=== PATIENT | female | born 1930 | race Caucasian/White ===

== ENCOUNTER 2016-04-25 15:58 | Emergency (ER) | payer MEDICARE, BC ==
[~2016-04-25] VITALS: Ht 160 cm; Wt 63.5 kg
[~2016-04-25 15:58] MED LIST: AMLO5TAB2 PO; BIO-POW TOP; GLYC2SUP RECTAL; PERI8.6T PO
[2016-04-25 16:01] VITALS: BP 162/74; PULSE 97; RESP 16; TEMP 97.5; O2SAT 98
[2016-04-25] MEDS ORDERED: DULO20 PO (17:29)
[2016-04-25] MEDS ORDERED: SODIUM CHLORIDE 0.9% FLUSH 5 ML FLUSH IVF PRN (17:30)
[2016-04-25 17:31] VITALS: BP_SYST 14; BP_SYST 140; BP_DIAS 69; PULSE 76; RESP 18; O2SAT 99
[2016-04-25 17:52] VITALS: RESP 18; O2SAT 98
[2016-04-25 17:55] LABS: AUTOMATED NEUTROPHIL # 2.8 TH/MM3 (1.8-7.7); BASOPHIL % 0.8 % (0.0-2.0); EOSINOPHIL # 0.1 TH/MM3 (0-0.4); EOSINOPHIL % 2.2 % (0.0-4.0); HEMATOCRIT 39.3 % (35.0-46.0); HEMO FLAGS DIFF FINAL; LYMPH % 27.7 % (9.0-44.0); LYMPHOCYTE # 1.3 TH/MM3 (1.0-4.8); MEAN CELL VOLUME 87.5 FL (80.0-100.0); MEAN CORPUSCULAR HEMOGLOBIN 30.9 PG (27.0-34.0); MEAN CORPUSCULAR HGB CONC 35.3 % (32.0-36.0); MONO % 10.2 % (0.0-8.0); NEUT % 59.1 % (16.0-70.0); PLATELET COUNT 224 TH/MM3 (150-450); RED BLOOD COUNT 4.49 MIL/MM3 (4.00-5.30); RED CELL DISTRIBUTION WIDTH 14.2 % (11.6-17.2); WHITE BLOOD COUNT 4.7 TH/MM3 (4.0-11.0)
--- NOTE | 2016-04-25 18:14 | RADRPT ---
EXAM DATE/TIME: 04/25/2016 17:54 [facility] COMPARISON: No previous studies available for comparison. INDICATIONS : Palpitations. MEDICAL HISTORY : Hypertension. Gastroesophageal reflux disease. SURGICAL HISTORY : Appendectomy. Cholecystectomy ENCOUNTER: Initial ACUITY: 1 day PAIN SCORE: 0/10 LOCATION: Bilateral chest FINDINGS: A single view of the chest demonstrates the lungs to be symmetrically aerated without evidence of mas s, infiltrate or effusion. The cardiomediastinal contours are unremarkable. Osseous structures are intact. CONCLUSION: No evidence of acute cardiopulmonary disease. Mitul Fernandes MD on April 25, 2016 at 18:12 Board Certified Radiologist. This report was verified electronically.
[2016-04-25] MEDS ORDERED: SODIUM CHLORID 0.9% 500 ML INJ 500 ML IV ONE (18:15)
[2016-04-25 18:23] LABS: ALKALINE PHOSPHATASE 59 U/L (45-117); ALT (GPT) 29 U/L (10-53); ANION GAP 9 MEQ/L (5-15); AST (GOT) 48 U/L (15-37); BICARBONATE 27.4 MEQ/L (21.0-32.0); BLOOD UREA NITROGEN 14 MG/DL (7-18); CHLORIDE 106 MEQ/L (98-107); CREATINE KINASE 200 U/L (26-192); GLOMERULAR FILTRATION RATE 64 ML/MIN (>89); MAGNESIUM 1.9 MG/DL (1.5-2.5); SODIUM (NA) 142 MEQ/L (136-145); TOTAL BILIRUBIN ADULT 0.5 MG/DL (0.2-1.0)
[2016-04-25 18:24] LABS: POTASSIUM 4.5 MEQ/L (3.5-5.1)
--- NOTE | 2016-04-25 18:30 | PD ---
HPI Chief Complaint: General Weakness Time Seen by Provider: 17:29 Travel History International Travel<30 days: No Contact w/Intl Traveler<30days: No Traveled to known affect area: No History of Present Illness HPI 86-year-old female jail patient with history of hypertension, presents to the ER today sent in from jail because they state that she has been feeling more generally weak at the facility. Patient states that sometimes she has trouble walking around at the facility. She states it is more of a generalized weakness. However, she denies any fevers, vomiting, or other symptoms. She was observed in the ER walking with her walker from triage to her room. She wrote reports no pain, or other symptoms. She had a UTI recently and states that she feels the same way as when she had her UTI. Modifying Factors: None Associated Signs & Symptoms: General weakness Risk Factors: Elderly jail patient PFSH Past Medical History Hx Anticoagulant Therapy: Yes Asthma: No Blood Disorders: No Anxiety: No Depression: No Heart Rhythm Problems: No Cancer: No Cardiovascular Problems: Yes High Cholesterol: Yes Chemotherapy: No Chest Pain: No Congestive Heart Failure: No COPD: No Diabetes: No Diminished Hearing: Yes (HARD OF HEARING) Endocrine: No Gastrointestinal Disorders: Yes GERD: Yes Genitourinary: No Hypertension: Yes Implanted Vascular Access Dvce: No Musculoskeletal: Yes Neurologic: No Psychiatric: No Reproductive: No Respiratory: No Radiation Therapy: No Sleep Apnea: No Thyroid Disease: No PNEUMOCCOCAL Vaccine (Year): 1 ?: Not Menopausal: Yes Past Surgical History Appendectomy: Yes Cholecystectomy: Yes Other Surgery: Yes (appendectomy and choly) Social History Alcohol Use: No Tobacco Use: No Substance Use: No Allergies-Medications (Allergen,Severity, Reaction): Coded Allergies: Quinine (Verified Allergy, Severe, 04/25/16) Reported Meds & Prescriptions Reported Meds & Active Scripts Active Keflex (Cephalexin) 500 Mg Cap 500 Mg PO Q6H 7 Days Amlodipine (Amlodipine Besylate) 5 Mg Tab 10 Mg PO DAILY 2 5mg tablets (10mg) daily Reported Cymbalta DR (Duloxetine HCl) 20 Mg Capdr 20 Mg PO DAILY Review of Systems Except as stated in HPI: all other systems reviewed are Neg Physical Exam Narrative GENERAL: Well-nourished, well-developed pleasant elderly white male female patient in no acute distress. Awake, alert, oriented 3. Answering questions appropriately. Ambulatory in the ER. SKIN: Warm and dry. HEAD: Normocephalic. EYES: No scleral icterus. No injection or drainage. NECK: Supple, trachea midline. CARDIOVASCULAR: Regular rate and rhythm without murmurs, gallops, or rubs. RESPIRATORY: Breath sounds equal bilaterally. No accessory muscle use. GASTROINTESTINAL: Abdomen soft, non-tender, nondistended. MUSCULOSKELETAL: No cyanosis, or edema. BACK: Nontender without obvious deformity. No CVA tenderness. NEUROLOGICAL: Awake and alert. Cranial nerves II through XII intact. Motor and sensory grossly within normal limits. Five out of 5 muscle strength in all muscle groups. Normal speech. Data Data Last Documented VS Vital Signs Date Time Temp Pulse Resp B/P Pulse Ox O2 Delivery O2 Flow Rate FiO2 04/25/16 17:52 18 98 Room Air 04/25/16 17:31 76 140/69 04/25/16 16:01 97.5 Orders Electrocardiogram (04/25/16 17:29) Complete Blood Count With Diff (04/25/16 17:29) Comprehensive Metabolic Panel (04/25/16 17:29) Magnesium (Mg) (04/25/16 17:29) Ckmb (Isoenzyme) Profile (04/25/16 17:29) Troponin I (04/25/16 17:29) Urinalysis - C+S If Indicated (04/25/16 17:29) Chest, Single Ap (04/25/16 17:29) Ecg Monitoring (04/25/16 17:29) Iv Access Insert/Monitor (04/25/16 17:29) Oximetry (04/25/16 17:29) Sodium Chloride 0.9% Flush (Ns Flush) (04/25/16 17:30) Sodium Chlorid 0.9% 500 Ml Inj (Ns 500 M (04/25/16 18:15) CKMB (04/25/16 17:41) CKMB% (04/25/16 17:41) Ct Brain W/O Iv Contrast(Rout) (04/25/16 18:30) Urine Culture (04/25/16 18:38) Labs Laboratory Tests Test 04/25/16 04/25/16 17:41 18:38 White Blood Count 4.7 TH/MM3 Red Blood Count 4.49 MIL/MM3 Hemoglobin 13.9 GM/DL Hematocrit 39.3 % Mean Corpuscular Volume 87.5 FL Mean Corpuscular Hemoglobin 30.9 PG Mean Corpuscular Hemoglobin 35.3 % Concent Red Cell Distribution Width 14.2 % Platelet Count 224 TH/MM3 Mean Platelet Volume 11.2 FL Neutrophils (%) (Auto) 59.1 % Lymphocytes (%) (Auto) 27.7 % Monocytes (%) (Auto) 10.2 % Eosinophils (%) (Auto) 2.2 % Basophils (%) (Auto) 0.8 % Neutrophils # (Auto) 2.8 TH/MM3 Lymphocytes # (Auto) 1.3 TH/MM3 Monocytes # (Auto) 0.5 TH/MM3 Eosinophils # (Auto) 0.1 TH/MM3 Basophils # (Auto) 0.0 TH/MM3 CBC Comment DIFF FINAL Differential Comment Sodium Level 142 MEQ/L Potassium Level 4.5 MEQ/L Chloride Level 106 MEQ/L Carbon Dioxide Level 27.4 MEQ/L Anion Gap 9 MEQ/L Blood Urea Nitrogen 14 MG/DL Creatinine 0.84 MG/DL Estimat Glomerular Filtration 64 ML/MIN Rate Random Glucose 97 MG/DL Calcium Level 9.0 MG/DL Magnesium Level 1.9 MG/DL Total Bilirubin 0.5 MG/DL Aspartate Amino Transf 48 U/L (AST/SGOT) Alanine Aminotransferase 29 U/L (ALT/SGPT) Alkaline Phosphatase 59 U/L Total Creatine Kinase 200 U/L Creatine Kinase MB 1.8 NG/ML Creatine Kinase MB % 0.9 % Troponin I LESS THAN 0.02 NG/ML Total Protein 7.8 GM/DL Albumin 3.8 GM/DL Urine Color LIGHT-YELLOW Urine Turbidity CLEAR Urine pH 7.5 Urine Specific [place] 1.005 Urine Protein NEG mg/dL Urine Glucose (UA) NEG mg/dL Urine Ketones NEG mg/dL Urine Occult Blood NEG Urine Nitrite NEG Urine Bilirubin NEG Urine Urobilinogen LESS THAN 2.0 MG/DL Urine Leukocyte Esterase MOD Urine WBC 16 /hpf Urine Bacteria RARE /hpf Microscopic Urinalysis Comment CULTURE INDICATED MDM Medical Decision Making Medical Screen Exam Complete: Yes Emergency Medical Condition: Yes Medical Record Reviewed: Yes Interpretation(s) Laboratory Tests Test 04/25/16 04/25/16 17:41 18:38 Mean Platelet Volume 11.2 FL (7.0-11.0) Monocytes (%) (Auto) 10.2 % (0.0-8.0) Estimat Glomerular Filtration 64 ML/MIN (>89) Rate Aspartate Amino Transf 48 U/L (15-37) (AST/SGOT) Total Creatine Kinase 200 U/L (26-192) Troponin I LESS THAN 0.02 NG/ML (0.02-0.05) Urine Leukocyte Esterase MOD (NEG) Urine WBC 16 /hpf (0-5) Urine Bacteria RARE /hpf (NONE) Differential Diagnosis General weaknesssepsis versus dehydration versus metabolic issues versus deconditioning versus CVA Narrative Course Lab work shows significant UTI. Metabolic panel is otherwise unremarkable. I do not see any signs of focal neurological deficits. Vital signs are stable in the ER. My plan would be to treat her for UTI and have her follow-up with primary care physician. Return for any worsening in symptoms as needed. Diagnosis Primary Impression: UTI (urinary tract infection) Med/Other Pt SpecificInfo: Prescription(s) given Scripts Cephalexin (Keflex)500 Mg Adm333 Mg PO Q6H 7 Days Ref 0 Prov:Ama You MD 04/25/16 Disposition: 03 DISCHARGE TO SNF Condition: Stable Ama You MD Apr 25, 2016 18:30
[2016-04-25 18:36] LABS: CKMB 1.8 NG/ML (0.5-3.6)
[2016-04-25 18:53] LABS: BACTERIA, URINE RARE /hpf; BLOOD, URINE NEG (NEG); COMMENT (UR) CULTURE INDICATED; CULTURE IF INDICATED CULTURE INDICATED; GLUCOSE,URINE NEG (NEG); KETONE, URINE NEG (NEG); NITRITE,URINE NEG (NEG); PH, URINE 7.5 (5.0-8.5); URINE COLOR LIGHT-YELLOW (YELLW/STRAW)
[2016-04-25] MEDS ORDERED: CEPH-460 PO (19:02)
--- NOTE | 2016-04-25 19:29 | RADRPT ---
EXAM DATE/TIME: 04/25/2016 18:58 [facility] COMPARISON: CT BRAIN W/O CONTRAST, December 28, 2015, 11:53. INDICATIONS : Weakness. RADIATION DOSE: 32.91 CTDIvol (mGy) MEDICAL HISTORY : Hypercholesterolemia. Cardiovascular disease Gastroesophageal reflux disease.Hypertension SURGICAL HISTORY : Appendectomy. Cholecystectomy. ENCOUNTER: Initial ACUITY: 1 day PAIN SCALE: 0/10 LOCATION: cranial TECHNIQUE: Multiple contiguous axial images were obtained of the head. Using automated exposure control and adj ustment of the mA and/or kV according to patient size, radiation dose was kept as low as reasonably a chievable to obtain optimal diagnostic quality images. FINDINGS: CEREBRUM: The ventricles are normal for age. No evidence of midline shift, mass lesion, hemorrhage or acute in farction. No extra-axial fluid collections are seen. Patchy and chronic low attenuation in the periv entricular white matter again noted aerated POSTERIOR FOSSA: The cerebellum and brainstem are intact. The 4th ventricle is midline. The cerebellopontine angle i s unremarkable. EXTRACRANIAL: The visualized portion of the orbits is intact. SKULL: The calvaria is intact. No evidence of skull fracture. CONCLUSION: No acute intracranial abnormality demonstrated. Atrophy and chronic white matter changes. Mitul Fernandes MD on April 25, 2016 at 19:26 Board Certified Radiologist. This report was verified electronically.
[2016-04-25 20:54] VITALS: BP 149/74
[2016-04-25] MEDS ORDERED: CEPHALEXIN MONOHYDRATE 500 MG CAP PO ONE (21:00)
--- NOTE | 2016-04-25 21:02 | EKG ---
Date Performed: 04/25/2016 Time Performed: 18:05:19 PTAGE: 86 years EKG: SINUS TACHYCARDIA WITH FIRST DEGREE AV BLOCK WITH OCCASIONAL VENTRICULAR AND SUPRAVENTRICUL AR PREMATURE COMPLEXES ABNORMAL ECG PREVIOUS TRACING : 12/28/2015 11.38 Compared to previous tracing, PVCs and PACs are now present . DOCTOR: Edmond Torre Interpretating Date/Time 04/25/2016 21:00:14
[2016-05-06] MEDS ORDERED: CYAN1000P SQ (15:31)
[2016-05-06] MEDS ORDERED: MIRA33504 PO (15:36)
[2016-05-23] MEDS ORDERED: CYAN1000P SQ (11:36)
[2016-05-27] MEDS ORDERED: GUAISYP7 PO (15:40)
[2016-05-27] MEDS ORDERED: CEFU250T PO (15:40)
[2016-07-08] MEDS ORDERED: AMLO10TA2 PO (15:07)
[2016-08-12] MEDS ORDERED: MIRA3350 PO (15:00)
== END 2016-04-25 21:00 ==
LOC: NEPC 15:58
DX: E78.00 Pure hypercholesterolemia, unspecified (principal); I10 Essential (primary) hypertension; H91.90 Unspecified hearing loss, unspecified ear; R00.0 Tachycardia, unspecified; I44.0 Atrioventricular block, first degree; I49.3 Ventricular premature depolarization; R94.31 Abnormal electrocardiogram [ECG] [EKG]
CPT/HCPCS: 70450; 71010; 80053; 81001; 82550; 82552; 83735; 84484; 85025; 87086; 93005; 99285; J7040; 87077; 87186

== ENCOUNTER 2016-07-23 22:57 | Emergency (ER) | payer MEDICARE, BC ==
[~2016-07-23] VITALS: Ht 165.1 cm; Wt 70.0 kg
[~2016-07-23 22:57] MED LIST changes: +AMLO10TA2 PO; -AMLO5TAB2 PO; -BIO-POW TOP; +CEFU250T PO; +CYAN1000P SQ; +DULO20 PO; -GLYC2SUP RECTAL; +GUAISYP7 PO; +MIRA33504 PO; -PERI8.6T PO
[2016-07-23 22:59] VITALS: BP 181/103; PULSE 98; RESP 16; TEMP 97.6; O2SAT 97
[2016-07-23] MEDS ORDERED: POLY17PO3 PO (23:21)
[2016-07-23] MEDS ORDERED: VITA100021 SQ (23:21)
[2016-07-23] MEDS ORDERED: ROBA100S5 PO (23:21)
[2016-07-23] MEDS ORDERED: PERI8.6T PO (23:21)
[2016-07-23 23:35] VITALS: BP 160/74; PULSE 75; RESP 16; O2SAT 98
--- NOTE | 2016-07-23 23:39 | PD ---
HPI Chief Complaint: General Weakness Time Seen by Provider: 23:16 Travel History International Travel<30 days: No Contact w/Intl Traveler<30days: No Traveled to known affect area: No History of Present Illness HPI Patient is an 86-year-old female who presents to emergency room with complaints of generalized weakness. Reports that for the past 3.5 weeks, she has been feeling weak, reports that she has had overall decreased oral intake. Patient reports that she doesn't feel hungry, reports that she forces herself to eat and walk to "make myself stronger." Patient denies any chest pain or shortness of breath. Patient denies any abdominal pain, nausea or vomiting. Patient reports that she recently saw her physician (July 09) and had her amlodipine decreased from 10 mg to 5 mg. Patient reports that she has been on multiple different antihypertensives in the past, but reports "they all didn't' make me feel good." Patient reports that she has had dizzyness for the past 3.5 months, reports no dizzyness today. Patient denies dysuria, reports that she is having increased urinary frequency. No fever/chills. PFSH Past Medical History Hx Anticoagulant Therapy: Yes Asthma: No Blood Disorders: No Anxiety: No Depression: No Heart Rhythm Problems: No Cancer: No Cardiovascular Problems: Yes High Cholesterol: Yes Chemotherapy: No Chest Pain: No Congestive Heart Failure: No COPD: No Diabetes: No Diminished Hearing: Yes (HARD OF HEARING) Endocrine: No Gastrointestinal Disorders: Yes GERD: Yes Genitourinary: No Hypertension: Yes Implanted Vascular Access Dvce: No Musculoskeletal: Yes Neurologic: No Psychiatric: No Reproductive: No Respiratory: No Radiation Therapy: No Sleep Apnea: No Thyroid Disease: No Influenza Vaccination: Yes PNEUMOCCOCAL Vaccine (Year): 1 Menopausal: Yes Past Surgical History Appendectomy: Yes Cholecystectomy: Yes Other Surgery: Yes (appendectomy and choly) Social History Alcohol Use: No Tobacco Use: No Substance Use: No Allergies-Medications (Allergen,Severity, Reaction): Coded Allergies: Quinine (Verified Allergy, Severe, 07/23/16) Reported Meds & Prescriptions Reported Meds & Active Scripts Active Reported Miralax (Polyethylene Glycol 3350) 17 Gm Powd.pack 17 Gm PO DAILY Robafen (Guaifenesin) 100 Mg/5 Ml Syp 10 Ml PO Q6HR Vitamin B-12 (Cyanocobalamin) 1,000 Mcg Subl 1,000 Mcg SQ DAILY Keturah-Colace (Sennosides-Docusate Sodium) 8.6-50 Mg Tab 1 Tab PO DAILY Amlodipine (Amlodipine Besylate) 10 Mg Tab 5 Mg PO DAILY Cymbalta DR (Duloxetine HCl) 20 Mg Capdr 30 Mg PO DAILY Review of Systems General / Constitutional: No: Fever, Chills Eyes: No: Visual changes HENT: No: Headaches Cardiovascular: No: Chest Pain or Discomfort, Palpitations, Irregular Rhythm, Tachycardia Respiratory: No: Shortness of Breath Gastrointestinal: No: Abdominal Pain Genitourinary: No: Dysuria Musculoskeletal: No: Pain Skin: No Rash Neurologic: Positive: Weakness, No: Dizziness, Syncope, Focal Abnormalities Psychiatric: No: Depression Endocrine: No: Polydipsia Hematologic/Lymphatic: No: Easy Bruising Physical Exam Narrative GENERAL: No acute distress, nontoxic SKIN: Focused skin assessment warm/dry. HEAD: Atraumatic. Normocephalic. EYES: Pupils equal and round. No scleral icterus. No injection or drainage. ENT: No nasal bleeding or discharge. Mucous membranes pink and moist. NECK: Trachea midline. No JVD. CARDIOVASCULAR: Regular rate and rhythm. No murmur appreciated. RESPIRATORY: No accessory muscle use. Clear to auscultation. Breath sounds equal bilaterally. GASTROINTESTINAL: Abdomen soft, non-tender, nondistended. Hepatic and splenic margins not palpable. MUSCULOSKELETAL: No obvious deformities. No clubbing. No cyanosis. No edema. NEUROLOGICAL: Awake and alert. No obvious cranial nerve deficits. Motor grossly within normal limits. Normal speech. PSYCHIATRIC: Appropriate mood and affect; insight and judgment normal. Data Data Last Documented VS Vital Signs Date Time Temp Pulse Resp B/P Pulse Ox O2 Delivery O2 Flow Rate FiO2 07/23/16 23:47 98 Room Air 07/23/16 23:35 75 16 160/74 07/23/16 22:59 97.6 Orders Complete Blood Count With Diff (07/23/16 23:31) Comprehensive Metabolic Panel (07/23/16 23:31) Urinalysis - C+S If Indicated (07/23/16 23:31) Iv Access Insert/Monitor (07/23/16 23:31) Ecg Monitoring (07/23/16 23:31) Oximetry (07/23/16 23:31) Sodium Chloride 0.9% Flush (Ns Flush) (07/23/16 23:45) Electrocardiogram (07/23/16 23:31) Sodium Chlorid 0.9% 500 Ml Inj (Ns 500 M (07/23/16 23:45) Urine Culture (07/23/16 23:40) Ceftriaxone Inj (Rocephin Inj) (07/24/16 00:30) Labs Laboratory Tests Test 07/23/16 07/23/16 23:37 23:40 White Blood Count 5.9 TH/MM3 Red Blood Count 4.40 MIL/MM3 Hemoglobin 13.6 GM/DL Hematocrit 38.9 % Mean Corpuscular Volume 88.2 FL Mean Corpuscular Hemoglobin 30.8 PG Mean Corpuscular Hemoglobin 34.9 % Concent Red Cell Distribution Width 13.3 % Platelet Count 198 TH/MM3 Mean Platelet Volume 10.3 FL Neutrophils (%) (Auto) 63.0 % Lymphocytes (%) (Auto) 22.7 % Monocytes (%) (Auto) 11.6 % Eosinophils (%) (Auto) 2.1 % Basophils (%) (Auto) 0.6 % Neutrophils # (Auto) 3.7 TH/MM3 Lymphocytes # (Auto) 1.3 TH/MM3 Monocytes # (Auto) 0.7 TH/MM3 Eosinophils # (Auto) 0.1 TH/MM3 Basophils # (Auto) 0.0 TH/MM3 CBC Comment DIFF FINAL Differential Comment Sodium Level 141 MEQ/L Potassium Level 3.8 MEQ/L Chloride Level 104 MEQ/L Carbon Dioxide Level 28.4 MEQ/L Anion Gap 9 MEQ/L Blood Urea Nitrogen 17 MG/DL Creatinine 0.85 MG/DL Estimat Glomerular Filtration 64 ML/MIN Rate Random Glucose 106 MG/DL Calcium Level 9.4 MG/DL Total Bilirubin 0.4 MG/DL Aspartate Amino Transf 27 U/L (AST/SGOT) Alanine Aminotransferase 26 U/L (ALT/SGPT) Alkaline Phosphatase 72 U/L Total Protein 7.9 GM/DL Albumin 3.9 GM/DL Urine Color YELLOW Urine Turbidity CLEAR Urine pH 6.5 Urine Specific [place] 1.012 Urine Protein NEG mg/dL Urine Glucose (UA) NEG mg/dL Urine Ketones NEG mg/dL Urine Occult Blood NEG Urine Nitrite NEG Urine Bilirubin NEG Urine Urobilinogen LESS THAN 2.0 MG/DL Urine Leukocyte Esterase MOD Urine RBC 1 /hpf Urine WBC 12 /hpf Urine Squamous Epithelial <1 /hpf Cells Urine Transitional Epithelial <1 /hpf Cells Urine Bacteria RARE /hpf Urine Hyaline Casts 5 /lpf Urine Mucus FEW /lpf Microscopic Urinalysis Comment CULTURE INDICATED MDM Medical Decision Making Medical Screen Exam Complete: Yes Emergency Medical Condition: Yes Interpretation(s) EKG at 2316: NSR at 95bpm, qt/qtc: 358/411, 1st degree av block, no acute changes Vital Signs Date Time Temp Pulse Resp B/P Pulse Ox O2 Delivery O2 Flow Rate FiO2 07/23/16 23:03 16 07/23/16 22:59 97.6 98 16 181/103 97 Room Air Differential Diagnosis Electrolyte abnormality, UTI, ACS, arrhythmia Narrative Course Patient is an 86-year-old female who presents to emergency room from her assisted living facilities with complaints of generalized weakness for the past 3.5 weeks. Patient reports no general complaints, she only admits to having urinary frequency. Patient has no fevers or chills, no chest pain or shortness of breath, no dizziness at this time. 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 Vital Signs Date Time Temp Pulse Resp B/P Pulse Ox O2 Delivery O2 Flow Rate FiO2 07/23/16 23:47 98 Room Air 07/23/16 23:35 75 16 160/74 98 Room Air 07/23/16 23:03 16 07/23/16 22:59 97.6 98 16 181/103 97 Room Air Laboratory Tests Test 07/23/16 07/23/16 23:37 23:40 White Blood Count 5.9 TH/MM3 (4.0-11.0) Red Blood Count 4.40 MIL/MM3 (4.00-5.30) Hemoglobin 13.6 GM/DL (11.6-15.3) Hematocrit 38.9 % (35.0-46.0) Mean Corpuscular Volume 88.2 FL (80.0-100.0) Mean Corpuscular Hemoglobin 30.8 PG (27.0-34.0) Mean Corpuscular Hemoglobin 34.9 % Concent (32.0-36.0) Red Cell Distribution Width 13.3 % (11.6-17.2) Platelet Count 198 TH/MM3 (150-450) Mean Platelet Volume 10.3 FL (7.0-11.0) Neutrophils (%) (Auto) 63.0 % (16.0-70.0) Lymphocytes (%) (Auto) 22.7 % (9.0-44.0) Monocytes (%) (Auto) 11.6 % (0.0-8.0) Eosinophils (%) (Auto) 2.1 % (0.0-4.0) Basophils (%) (Auto) 0.6 % (0.0-2.0) Neutrophils # (Auto) 3.7 TH/MM3 (1.8-7.7) Lymphocytes # (Auto) 1.3 TH/MM3 (1.0-4.8) Monocytes # (Auto) 0.7 TH/MM3 (0-0.9) Eosinophils # (Auto) 0.1 TH/MM3 (0-0.4) Basophils # (Auto) 0.0 TH/MM3 (0-0.2) CBC Comment DIFF FINAL Differential Comment Sodium Level 141 MEQ/L (136-145) Potassium Level 3.8 MEQ/L (3.5-5.1) Chloride Level 104 MEQ/L (98-107) Carbon Dioxide Level 28.4 MEQ/L (21.0-32.0) Anion Gap 9 MEQ/L (5-15) Blood Urea Nitrogen 17 MG/DL (7-18) Creatinine 0.85 MG/DL (0.50-1.00) Estimat Glomerular Filtration 64 ML/MIN (>89) Rate Random Glucose 106 MG/DL (74-106) Calcium Level 9.4 MG/DL (8.5-10.1) Total Bilirubin 0.4 MG/DL (0.2-1.0) Aspartate Amino Transf 27 U/L (15-37) (AST/SGOT) Alanine Aminotransferase 26 U/L (10-53) (ALT/SGPT) Alkaline Phosphatase 72 U/L (45-117) Total Protein 7.9 GM/DL (6.4-8.2) Albumin 3.9 GM/DL (3.4-5.0) Urine Color YELLOW (YELLW/STRAW) Urine Turbidity CLEAR (CLEAR) Urine pH 6.5 (5.0-8.5) Urine Specific [place] 1.012 (1.002-1.035) Urine Protein NEG mg/dL (NEG-TRACE) Urine Glucose (UA) NEG mg/dL (NEG) Urine Ketones NEG mg/dL (NEG) Urine Occult Blood NEG (NEG) Urine Nitrite NEG (NEG) Urine Bilirubin NEG (NEG) Urine Urobilinogen LESS THAN 2.0 MG/DL (LESS THAN 2.0) Urine Leukocyte Esterase MOD (NEG) Urine RBC 1 /hpf (0-3) Urine WBC 12 /hpf (0-5) Urine Squamous Epithelial <1 /hpf (0-5) Cells Urine Transitional Epithelial <1 /hpf (NONE) Cells Urine Bacteria RARE /hpf (NONE) Urine Hyaline Casts 5 /lpf (RARE) Urine Mucus FEW /lpf (OCC) Microscopic Urinalysis Comment CULTURE INDICATED cbc: wnl bmp: wnl ua: positive for leuk esterase, 12 wbc, rare bacteria Patient with most likely uti causing her symptoms. Plan to start patient on antibiotics. She will need to follow up with cultures from today. Signs and symptoms of when to return to ER was reviewed with patient in detail. Diagnosis Primary Impression: UTI (urinary tract infection) Qualified Code: N30.00 - Acute cystitis without hematuria Additional Impression: Generalized weakness Patient Instructions: General Instructions Additional Instructions: Please take all medications as prescribed Please return to the emergency room if symptoms worsen or progress Please follow up with all cultures from today Please follow up with your primary care doctor in 2-3 days Med/Other Pt SpecificInfo: Prescription(s) given Scripts Nitrofurantoin Macrocrystal (Macrodantin)100 Mg Gep797 Mg PO QID 10 Days Ref 0 Prov:Mary Parikh DO 07/24/16 Disposition: 01 DISCHARGE HOME Condition: Stable Mary Parikh DO July 23, 2016 23:39
[2016-07-23] MEDS ORDERED: SODIUM CHLORID 0.9% 500 ML INJ 500 ML IV ONE (23:45)
[2016-07-23] MEDS ORDERED: SODIUM CHLORIDE 0.9% FLUSH 10 ML FLUSH IV FLUSH PRN (23:45)
[2016-07-23 23:47] VITALS: O2SAT 98
[2016-07-23 23:51] LABS: AUTOMATED NEUTROPHIL # 3.7 TH/MM3 (1.8-7.7); BASOPHIL % 0.6 % (0.0-2.0); EOSINOPHIL # 0.1 TH/MM3 (0-0.4); EOSINOPHIL % 2.1 % (0.0-4.0); HEMATOCRIT 38.9 % (35.0-46.0); HEMO FLAGS DIFF FINAL; LYMPH % 22.7 % (9.0-44.0); LYMPHOCYTE # 1.3 TH/MM3 (1.0-4.8); MEAN CELL VOLUME 88.2 FL (80.0-100.0); MEAN CORPUSCULAR HEMOGLOBIN 30.8 PG (27.0-34.0); MEAN CORPUSCULAR HGB CONC 34.9 % (32.0-36.0); MONO % 11.6 % (0.0-8.0); PLATELET COUNT 198 TH/MM3 (150-450); RED CELL DISTRIBUTION WIDTH 13.3 % (11.6-17.2); WHITE BLOOD COUNT 5.9 TH/MM3 (4.0-11.0)
[2016-07-23 23:56] LABS: BACTERIA, URINE RARE /hpf; BLOOD, URINE NEG (NEG); COMMENT (UR) CULTURE INDICATED; CULTURE IF INDICATED CULTURE INDICATED; GLUCOSE,URINE NEG (NEG); HYALINE CAST, URINE 5 /lpf (RARE); KETONE, URINE NEG (NEG); MUCUS URINE FEW /lpf (OCC); NITRITE,URINE NEG (NEG); PH, URINE 6.5 (5.0-8.5); SQUAMOUS EPITHELIAL CELL URINE <1 /hpf (0-5); TRANSITIONAL EPI CELLS, URINE <1 /hpf; URINE COLOR YELLOW (YELLW/STRAW)
[2016-07-24 00:04] LABS: ALT (GPT) 26 U/L (10-53); ANION GAP 9 MEQ/L (5-15); AST (GOT) 27 U/L (15-37); BICARBONATE 28.4 MEQ/L (21.0-32.0); BLOOD UREA NITROGEN 17 MG/DL (7-18); CHLORIDE 104 MEQ/L (98-107); GLOMERULAR FILTRATION RATE 64 ML/MIN (>89); POTASSIUM 3.8 MEQ/L (3.5-5.1); SODIUM (NA) 141 MEQ/L (136-145)
[2016-07-24 00:05] LABS: ALKALINE PHOSPHATASE 72 U/L (45-117); TOTAL BILIRUBIN ADULT 0.4 MG/DL (0.2-1.0)
[2016-07-24] MEDS ORDERED: MACR100C3 PO (00:20)
[2016-07-24] MEDS ORDERED: cefTRIAXone INJ 1,000 MG in SODIUM CHLORIDE 0.9% INJ 100 ML IV ONE (00:30)
--- NOTE | 2016-07-24 17:09 | EKG ---
Date Performed: 07/23/2016 Time Performed: 23:16:10 PTAGE: 86 years EKG: Sinus rhythm WITH FIRST DEGREE AV BLOCK WITH FREQUENT SUPRAVENTRICULAR PREMATURE COMPLEXES ABNORMAL ECG Compared to the PREVIOUS TRACING from 04/25/16, no significant change DOCTOR: Ronal Cerda Interpretating Date/Time 07/24/2016 17:07:13
[2016-08-12] MEDS ORDERED: MIRA3350 PO (15:00)
[2016-09-02] MEDS ORDERED: GABA100C4 PO (09:35)
== END 2016-07-24 00:45 | disposition home or self-care (01) ==
LOC: NEPC 22:57
DX: N30.00 Acute cystitis without hematuria (principal); B96.89 Other specified bacterial agents as the cause of diseases classified elsewhere
CPT/HCPCS: 80053; 81001; 85025; 87086; 93005; 96374; 99284; J0696; J7040

== ENCOUNTER 2016-07-29 09:09 | Emergency (ER) | payer MEDICARE, BC ==
[~2016-07-29] VITALS: Ht 157.5 cm; Wt 70.0 kg
[~2016-07-29 09:09] MED LIST changes: -CEFU250T PO; -CYAN1000P SQ; -GUAISYP7 PO; +MACR100C3 PO; -MIRA33504 PO; +PERI8.6T PO; +POLY17PO3 PO; +ROBA100S5 PO; +VITA100021 SQ
[2016-07-29 09:16] VITALS: BP 190/85; PULSE 69; RESP 18; TEMP 98.4; O2SAT 97
[2016-07-29 09:25] VITALS: TEMP 98; O2SAT 98
[2016-07-29] MEDS ORDERED: SODIUM CHLORIDE 0.9% FLUSH 10 ML FLUSH IVF PRN (09:30)
[2016-07-29 09:32] VITALS: BP 190/85; PULSE 72; RESP 16; TEMP 98; O2SAT 98
[2016-07-29 09:55] LABS: AUTOMATED NEUTROPHIL # 2.3 TH/MM3 (1.8-7.7); BASOPHIL % 0.6 % (0.0-2.0); EOSINOPHIL # 0.2 TH/MM3 (0-0.4); EOSINOPHIL % 3.6 % (0.0-4.0); HEMATOCRIT 38.8 % (35.0-46.0); HEMO FLAGS DIFF FINAL; LYMPH % 28.5 % (9.0-44.0); LYMPHOCYTE # 1.2 TH/MM3 (1.0-4.8); MEAN CELL VOLUME 88.6 FL (80.0-100.0); MEAN CORPUSCULAR HEMOGLOBIN 29.9 PG (27.0-34.0); MEAN CORPUSCULAR HGB CONC 33.8 % (32.0-36.0); MONO % 12.8 % (0.0-8.0); NEUT % 54.5 % (16.0-70.0); PLATELET COUNT 171 TH/MM3 (150-450); RED BLOOD COUNT 4.37 MIL/MM3 (4.00-5.30); RED CELL DISTRIBUTION WIDTH 13.6 % (11.6-17.2); WHITE BLOOD COUNT 4.2 TH/MM3 (4.0-11.0)
[2016-07-29 09:56] LABS: BACTERIA, URINE RARE /hpf; BLOOD, URINE NEG (NEG); COMMENT (UR) CATH-CULTURE IND; CULTURE IF INDICATED CATH CULTURE IND; GLUCOSE,URINE NEG (NEG); KETONE, URINE NEG (NEG); NITRITE,URINE NEG (NEG); SQUAMOUS EPITHELIAL CELL URINE <1 /hpf (0-5); URINE COLOR YELLOW (YELLW/STRAW)
[2016-07-29] MEDS ORDERED: ENEMENE3 PR (10:10)
[2016-07-29] MEDS ORDERED: DULO1CAP2 PO (10:10)
[2016-07-29] MEDS ORDERED: GLYC2SUP RECTAL (10:10)
[2016-07-29] MEDS ORDERED: CYAN1000P SQ (10:10)
[2016-07-29] MEDS ORDERED: ROBIDM5S PO (10:10)
[2016-07-29] MEDS ORDERED: AMLO5TAB2 PO (10:10)
[2016-07-29 10:23] LABS: ANION GAP 5 MEQ/L (5-15); BICARBONATE 31.8 MEQ/L (21.0-32.0); BLOOD UREA NITROGEN 14 MG/DL (7-18); CHLORIDE 104 MEQ/L (98-107); GLOMERULAR FILTRATION RATE 82 ML/MIN (>89); POTASSIUM 3.7 MEQ/L (3.5-5.1); SODIUM (NA) 141 MEQ/L (136-145)
[2016-07-29 10:40] VITALS: BP 185/82; PULSE 88
--- NOTE | 2016-07-29 10:54 | RADRPT ---
EXAM DATE/TIME: 07/29/2016 10:35 [facility] COMPARISON: No previous studies available for comparison. INDICATIONS : Left hip pain. MEDICAL HISTORY : Hypercholesterolemia. Cardiovascular disease Gastroesophageal reflux disease.Hypertension SURGICAL HISTORY : Appendectomy. Cholecystectomy ENCOUNTER: Initial ACUITY: 2 days PAIN SCORE: 10/10 LOCATION: Left Hip. FINDINGS: Examination of the left hip was performed with AP Pelvis. The primary and secondary trabecular patte rn of the femoral neck is intact. The hip joint is of normal width without significant sclerosis or bony hypertrophy. There is some mild degenerative changes characteristic for patient's age. The aceta bulum is grossly intact. There are some degenerative changes of the lower lumbar spine. CONCLUSION: 1. 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 2. No acute fracture or joint dislocation. Cruzito Weiner MD on July 29, 2016 at 10:52 Board Certified Radiologist. This report was verified electronically.
--- NOTE | 2016-07-29 11:33 | PD ---
HPI Chief Complaint: Pain: Acute or Chronic Time Seen by Provider: 09:19 Travel History International Travel<30 days: No Contact w/Intl Traveler<30days: No Traveled to known affect area: No History of Present Illness HPI Patient is a 86-year-old female presents emergency Department with complaint of left hip pain. Patient lives at [facility]. Has been complaining of pain in the left hip for the last 2-3 days. No noted fall. She was at physical therapy on Thursday and did well without any difficulty. She has not had any fevers, chills. Was notably here recently for a UTI. States his symptoms have resolved. PFSH Past Medical History Hx Anticoagulant Therapy: Yes Asthma: No Blood Disorders: No Anxiety: No Depression: No Heart Rhythm Problems: No Cancer: No Cardiovascular Problems: Yes High Cholesterol: Yes Chemotherapy: No Chest Pain: No Congestive Heart Failure: No COPD: No Diabetes: No Diminished Hearing: Yes (bilateral) Endocrine: No Gastrointestinal Disorders: Yes GERD: Yes Genitourinary: Yes (uti ) Hypertension: Yes Implanted Vascular Access Dvce: No Medical other: Yes (gorsalgia, vit. deficiency ) Musculoskeletal: Yes Neurologic: No Psychiatric: No Reproductive: No Respiratory: No Radiation Therapy: No Sleep Apnea: No Thyroid Disease: No Influenza Vaccination: Yes PNEUMOCCOCAL Vaccine (Year): 1 ?: Not Menopausal: Yes Past Surgical History Surgical History: Unable to Obtain Appendectomy: Yes Cholecystectomy: Yes Other Surgery: Yes (appendectomy and choly) Family History Family Hypercholesterolemia: Yes Social History Alcohol Use: No Tobacco Use: No Substance Use: No Allergies-Medications (Allergen,Severity, Reaction): Coded Allergies: Quinine (Verified Allergy, Severe, 07/23/16) Reported Meds & Prescriptions Reported Meds & Active Scripts Active Macrodantin (Nitrofurantoin Macrocrystal) 100 Mg Cap 100 Mg PO QID 10 Days Reported Glycerin Adult Supp (Glycerin) 2 Gm Supp 2 Gm RECTAL BID PRN Enema 7-19 gm/118Ml (Sodium Phosphates) 1 Rocio Rocio 118 Ml VT DAILY PRN Guaifenesin-Dm Liq (Guaifenesin/Dextromethorphan) 100-10 Mg/5 Ml Syrp 10 Ml PO Q6HR PRN Cyanocobalamin Inj (Cyanocobalamin) 1,000 Mcg/Ml Inj 1,000 Mcg SQ MONTHLY ON THE Amlodipine (Amlodipine Besylate) 5 Mg Tab 5 Mg PO DAILY Duloxetine DR (Duloxetine HCl) 30 Mg Capdr 30 Mg PO DAILY Miralax (Polyethylene Glycol 3350) 17 Gm Powd.pack 17 Gm PO DAILY PRN Review of Systems ROS Limitations: Poor Historian Except as stated in HPI: all other systems reviewed are Neg Physical Exam Exam Limitations: Poor Historian Narrative GENERAL: Elderly female in no acute distress SKIN: Focused skin assessment warm/dry. No erythema about the hip HEAD: Normocephalic. EYES: No scleral icterus. No injection or drainage. ENT: Mucous membranes pink and moist. NECK: Supple CARDIOVASCULAR: Regular rate and rhythm. No murmur appreciated. Hypertensive RESPIRATORY: No accessory muscle use. Clear to auscultation. Breath sounds equal bilaterally. GASTROINTESTINAL: Abdomen soft, non-tender, nondistended. MUSCULOSKELETAL: No midline tenderness to palpation of thoracic or lumbar spine. Pelvis is stable to AP and lateral compression. No tenderness to palpation over the sacroiliac joint. Distal sensation, pulses are intact. Patient has full range of motion at the hip though extension and internal rotation at the hip reproduces her pain. There is no obvious swelling, erythema , lesions around the hip. Patient is able to ambulate with her walker, which she walks without baseline, without any difficulty. NEUROLOGICAL: Awake and alert. Normal speech. PSYCHIATRIC: Appropriate mood and affect; insight and judgment normal. Data Data Last Documented VS Vital Signs Date Time Temp Pulse Resp B/P Pulse Ox O2 Delivery O2 Flow Rate FiO2 07/29/16 10:40 88 185/82 07/29/16 09:32 98.0 16 98 Room Air Orders Complete Blood Count With Diff (07/29/16 09:19) Urinalysis - C+S If Indicated (07/29/16 09:19) Hip, Uni(Ap&Lat) W Ap Pelvis (07/29/16 09:19) Iv Access Insert/Monitor (07/29/16 09:19) Oximetry (07/29/16 09:19) Ecg Monitoring (07/29/16 09:19) Sodium Chloride 0.9% Flush (Ns Flush) (07/29/16 09:30) Basic Metabolic Panel (Bmp) (07/29/16 09:19) Westergren Sedimentation Rate (07/29/16 09:19) C-Reactive Protein (Crp) (07/29/16 09:19) Cath For Specimen (07/29/16 09:19) Urine Culture (07/29/16 09:31) Labs Laboratory Tests Test 07/29/16 09:31 White Blood Count 4.2 TH/MM3 Red Blood Count 4.37 MIL/MM3 Hemoglobin 13.1 GM/DL Hematocrit 38.8 % Mean Corpuscular Volume 88.6 FL Mean Corpuscular Hemoglobin 29.9 PG Mean Corpuscular Hemoglobin 33.8 % Concent Red Cell Distribution Width 13.6 % Platelet Count 171 TH/MM3 Mean Platelet Volume 10.1 FL Neutrophils (%) (Auto) 54.5 % Lymphocytes (%) (Auto) 28.5 % Monocytes (%) (Auto) 12.8 % Eosinophils (%) (Auto) 3.6 % Basophils (%) (Auto) 0.6 % Neutrophils # (Auto) 2.3 TH/MM3 Lymphocytes # (Auto) 1.2 TH/MM3 Monocytes # (Auto) 0.5 TH/MM3 Eosinophils # (Auto) 0.2 TH/MM3 Basophils # (Auto) 0.0 TH/MM3 CBC Comment DIFF FINAL Differential Comment Erythrocyte Sedimentation Rate 22 mm/hr Urine Color YELLOW Urine Turbidity HAZY Urine pH 7.0 Urine Specific [employer] 1.011 Urine Protein NEG mg/dL Urine Glucose (UA) NEG mg/dL Urine Ketones NEG mg/dL Urine Occult Blood NEG Urine Nitrite NEG Urine Bilirubin NEG Urine Urobilinogen LESS THAN 2.0 MG/DL Urine Leukocyte Esterase TRACE Urine RBC LESS THAN 1 /hpf Urine WBC 3 /hpf Urine Squamous Epithelial <1 /hpf Cells Urine Amorphous Sediment RARE Urine Bacteria RARE /hpf Microscopic Urinalysis Comment CATH-CULTURE IND Sodium Level 141 MEQ/L Potassium Level 3.7 MEQ/L Chloride Level 104 MEQ/L Carbon Dioxide Level 31.8 MEQ/L Anion Gap 5 MEQ/L Blood Urea Nitrogen 14 MG/DL Creatinine 0.68 MG/DL Estimat Glomerular Filtration 82 ML/MIN Rate Random Glucose 112 MG/DL Calcium Level 8.9 MG/DL C-Reactive Protein LESS THAN 0.29 MG/DL [facility] Medical Decision Making Medical Screen Exam Complete: Yes Emergency Medical Condition: Yes Medical Record Reviewed: Yes Differential Diagnosis 86-year-old female here with complaint of atraumatic left hip pain. Differential includes occult fracture, osteoarthritis, and less likely septic arthritis or dislocation Narrative Course Patient placed on monitor, IV established and blood obtained. CBC, BMP, CRP, ESR, urinalysis were obtained and unremarkable. Only trace leukocyte Estrace with rare bacteria on the cathetered UA. We'll send for culture and await this. X-ray of the left hip and pelvis shows degenerative changes at the hips, characteristic with her age but no fracture or dislocation. Again patient was able ambulate independently with her walker will be discharged home. Diagnosis Primary Impression: Osteoarthritis of left hip Qualified Code: M16.12 - Primary osteoarthritis of left hip Referrals: Primary Care Physician as needed Additional Instructions: CBC, BMP, CRP, ESR, urinalysis as well as x-rays of the pelvis and left hip today were normal. Tylenol as needed for pain. Continue physical therapy. Med/Other Pt SpecificInfo: No Change to Meds Disposition: 01 DISCHARGE HOME Condition: Stable Tierra Davis MD July 29, 2016 11:33
[2016-07-29 12:01] VITALS: BP 178/80; PULSE 63; RESP 16; O2SAT 97
[2016-07-29] MEDS ORDERED: TYLE325T PO (17:08)
[2016-08-12] MEDS ORDERED: MIRA3350 PO (15:00)
[2016-09-02] MEDS ORDERED: GABA100C4 PO (09:35)
== END 2016-07-29 12:30 ==
LOC: NEPD 09:09
DX: M16.12 Unilateral primary osteoarthritis, left hip (principal); I10 Essential (primary) hypertension; R82.71 Bacteriuria
CPT/HCPCS: 73502; 80048; 81001; 85025; 85652; 86140; 87086; 99284; P9612

== ENCOUNTER 2017-08-31 09:30 | Inpatient (IN) ==
[2017-09-03 18:16] VITALS: BP 140/77; PULSE 95; RESP 18; TEMP 97; O2SAT 94
== END 2017-09-03 17:45 ==
LOC: NEPD 09:30 → NEDA 15:03 → N06 20:50
PROVIDERS: ADMIT Hospitalist; ATTEND Hospitalist